=== PATIENT | male | born 1935 | race Caucasian/White ===

== ENCOUNTER → 2017-02-23 | Outpatient (CLI) | payer OTHER ==
[~2017-02-23] MED LIST: ADVAIR 250-501 EAC1 INH; ADVAIR 250-501 EACH IH; ASPIRIN81 M1 PO; ATENOLOL25 MG PO; BAYER ASPIRIN325 M1 PO; CENTRUM SILVER PO; CLARITIN10 M2 PO; CLARITIN10 MG PO; CRESTOR PO; GLIPIZIDE2.5 MG/BOT PO; GLUCOPHAGE500 M1 PO; HYDROCHLOROTH12.5 M1 PO; HYTRIN10 M1 PO; K-DUR10 MEQ PO; LIBRAX CAPSULE1 CA1 PO; LIPITOR20 MG PO; LOZOL PO; METAMUCIL PACKE1 PK1 PO; METAMUCIL1 PKT PO; MULTI VITAMIN1 EACH PO; OMEPRAZOLE40 M1 PO; POTASSIUM CHLO10 MEQ PO; PRILOSEC40 MG PO
--- NOTE | ~2017-02-23 | US37 ---
[facility] A Service of [facility] RADIOLOGY TEXT RESULTS PATIENT: TIERA PEDRO LOCATION: [facility] : 39 UNIT #: [id number] AGE: [address]: LILLY HEATH APRN SEX: M ORDER DR: [id number] [facility] [address] [place], [place] [address] [id number] O MR#: [id number] Acc #: [id number] NAME: TIERA PEDRO. : 1935 SEX: M STUDY DATE/TIME: 02/23/2017 10:10 UNIT: [facility] ROOM: STUDY DESCRIPTION: US Carotid W/Doppler Bilateral Attending Physician: Lilly Heaht Aprn Referring Physician: Lilly Heath Aprn Ordering Physician: Lilly Heath Aprn Primary Care Physician: Danny Swanson Jr., M.D. MEDICAL IMAGING REPORT This report is preliminary unless electronic signature is present EXAM Bilateral carotid Doppler HISTORY Carotid stenosis FINDINGS The right common carotid, internal carotid and external carotid arteries are patent with mild diffuse plaque throughout. Velocity of the common carotid artery is 51 cm/second. Peak systolic velocity of the right proximal internal carotid artery is 59 cm/second with an end diastolic velocity of 18 cm/second for an ICA:CCA of 1.15. External carotid artery with a velocity of 103 cm/second. The vertebral artery is visualized with antegrade flow. The left common carotid, internal carotid and external carotid arteries are patent with mild diffuse plaque noted throughout. Velocity of the common carotid artery is 65 cm/second. Peak systolic velocity of the left proximal internal carotid artery is 65 cm/second with an end diastolic velocity of 15 cm/second for an ICA:CCA of 1.0. External carotid artery with a velocity of 40 cm/second. The vertebral artery is visualized with antegrade flow. IMPRESSION 1. Less than 50% stenosis of the right and left internal carotid arteries. 2. No stenosis of the external carotid arteries. 3. Antegrade flow the vertebral arteries. Dictated by... [facility] A Service [facility] RADIOLOGY TEXT RESULTS PATIENT: TIERA PEDRO LOCATION: [facility] : 37 UNIT #: [id number] AGE: [address]: LILLY HEATH APRN SEX: M ORDER DR: Jose Rojas M.D. THIS IS AN ELECTRONICALLY VERIFIED REPORT Jose Rojas M.D. at 02/24/2017 10:33 AM FPN/anali TD: 02/23/2017 19:55 JOB #: [id number] MEDICAL IMAGING REPORT Page 1 of 1 COPY
--- NOTE | ~2017-02-23 | US12 ---
[facility] A Service of [facility] RADIOLOGY TEXT RESULTS PATIENT: TIERA PEDRO LOCATION: [facility] : 37 UNIT #: [id number] AGE: [address]: LILLY HEATH APRN SEX: M ORDER DR: [id number] [facility] [address] [place], [place] [address] [id number] O MR#: [id number] Acc #: [id number] NAME: TIERA PEDRO. : 1935 SEX: M STUDY DATE/TIME: 02/23/2017 9:58 UNIT: [facility] ROOM: STUDY DESCRIPTION: US Aorta Duplex Limited Attending Physician: Lilly Heath Aprn Referring Physician: Lilly Heath Aprn Ordering Physician: Lilly Heath Aprn Primary Care Physician: Danny Swanson Jr., M.D. MEDICAL IMAGING REPORT This report is preliminary unless electronic signature is present EXAM Abdominal aortic ultrasound, 02/23/2017 REASON FOR EXAM Aortic aneurysm, atherosclerosis. FINDINGS B-mode imaging and color Doppler imaging of the infrarenal aorta was performed that showed the vessel to be widely patent, without evidence of stenosis. Mid aortic velocity is 32 cm/sec. The proximal infrarenal aorta is 2 cm, mid aorta 3.6 cm and distal aorta 2 cm. The right common iliac artery is 1.1 cm and the left is 1.14 cm. There are normal velocities in the right and left iliac arteries. IMPRESSION Small infrarenal abdominal aortic aneurysm, 3.6 cm in diameter. The iliac arteries are widely patent with no evidence of aneurysm. Dictated by... Jose Rojas M.D. THIS IS AN ELECTRONICALLY VERIFIED REPORT Jose Rojas M.D. at 02/24/2017 10:33 AM MELBAN/sanaz TD: 02/23/2017 19:05 JOB #: [id number] MEDICAL IMAGING REPORT Page 1 of 1 COPY
== END | disposition home or self-care (01) ==
LOC: CGUS 09:31
DX: I65.23 Occlusion and stenosis of bilateral carotid arteries (principal); I71.4 Abdominal aortic aneurysm, without rupture
CPT/HCPCS: 93880; 93979